=== PATIENT | male | born 1975 | race Two or more races ===

== ENCOUNTER 2017-06-07 10:29 | Emergency (ER) | payer MEDICAID ==
[~2017-06-07] VITALS: Ht 182.9 cm; Wt 101.6 kg
[2017-06-07 11:28] VITALS: BP 123/86
== END 2017-06-07 11:30 | disposition home or self-care (01) ==
LOC: ER 10:29
DX: L02.92 Furuncle, unspecified (principal); F12.10 Cannabis abuse, uncomplicated; F15.10 Other stimulant abuse, uncomplicated